=== PATIENT | male | born 1990 | race Caucasian/White ===

== ENCOUNTER 2019-06-04 21:31 | Emergency (ER) | payer OTHER ==
[~2019-06-04] VITALS: Ht 170.2 cm; Wt 74.8 kg
[~2019-06-04 21:31] MED LIST: AMOXICILLIN500 M1 PO; IBUPROFEN 800800 M1 PO; NOHOMEMEDICATIONS; PROMETHAZINE-C120 ML PO; UNISOM SLEEP AI25 MG PO
[2019-06-04] MEDS ORDERED: PAXIL10 MG PO (21:46)
[2019-06-04 21:55] LABS: URINE BILIRUBIN NEGATIVE (Negative); URINE BLOOD NEGATIVE (Negative); URINE CLARITY CLEAR; URINE COLOR YELLOW; URINE GLUCOSE-RANDOM NEGATIVE (Negative); URINE KETONES NEGATIVE (Negative); URINE LEUKOCYTES NEGATIVE (Negative); URINE NITRITE NEGATIVE (Negative); URINE PROTEIN NEGATIVE (Negative); URINE SPECIFIC GRAVITY <= 1.005 (1.005-1.030); URINE UROBILINOGEN 0.2 E.U./dl (0.2-1.0)
[2019-06-04 22:05] LABS: AMP/METHAMP Negative (Negative); BARBITURATES Negative (Negative); BENZODIAZEPINES Negative (Negative); COCAINE Negative (Negative); METHADONE Negative (Negative); OPIATES Negative (Negative); PCP Negative (Negative); THC Negative (Negative)
[2019-06-04 22:09] LABS: HEMATOCRIT 46.5 % (42.0-52.0); HEMOGLOBIN 16.2 gm/dL (14.0-18.0); MCH 33.1 pg (26.0-34.0); MCHC 34.9 g/dL (28.0-37.0); MCV 94.7 fL (80.0-100.0); MPV 8.4 fl. (7.2-11.1); RBC 4.91 mil/uL (4.50-6.00); RDW-CV 13.3 % (10.5-14.5)
[2019-06-04 22:17] LABS: CALCIUM 8.1 mg/dL (8.5-10.1); CREATININE 0.9 mg/dL (0.6-1.3); POTASSIUM 3.8 mmol/L (3.5-5.1)
[2019-06-04 22:22] LABS: ALBUMIN 3.9 g/dL (3.4-5.0); TOTAL BILIRUBIN 0.2 mg/dL (<0.1-1.0)
[2019-06-04 22:25] LABS: ALCOHOL 258 mg/dL (<10)
[2019-06-04 22:29] LABS: ACETAMINOPHEN < 2 ug/mL (10-30)
[2019-06-05 10:43] VITALS: BP 116/58
== END 2019-06-05 10:43 ==
LOC: M.ERS 21:31
PROVIDERS: Personal Emergency Response Attendant
DX: F10.129 Alcohol abuse with intoxication, unspecified (principal); Y90.8 Blood alcohol level of 240 mg/100 ml or more; F32.9 Major depressive disorder, single episode, unspecified; R45.851 Suicidal ideations; F41.9 Anxiety disorder, unspecified; F17.210 Nicotine dependence, cigarettes, uncomplicated; Z79.899 Other long term (current) drug therapy

== ENCOUNTER 2019-06-21 07:20 | Emergency (ER) | payer OTHER ==
[~2019-06-21] VITALS: Ht 170.2 cm; Wt 72.6 kg
[~2019-06-21 07:20] MED LIST changes: +PAXIL10 MG PO
[2019-06-21 08:09] LABS: URINE BILIRUBIN NEGATIVE (Negative); URINE BLOOD NEGATIVE (Negative); URINE CLARITY CLEAR; URINE COLOR YELLOW; URINE GLUCOSE-RANDOM NEGATIVE (Negative); URINE KETONES TRACE (Negative); URINE LEUKOCYTES NEGATIVE (Negative); URINE NITRITE NEGATIVE (Negative); URINE PROTEIN NEGATIVE (Negative); URINE SPECIFIC GRAVITY 1.015 (1.005-1.030); URINE UROBILINOGEN 0.2 E.U./dl (0.2-1.0)
[2019-06-21 08:16] LABS: AMP/METHAMP Negative (Negative); BARBITURATES Negative (Negative); BENZODIAZEPINES Negative (Negative); COCAINE Negative (Negative); METHADONE Negative (Negative); OPIATES Negative (Negative); PCP Negative (Negative); THC POSITIVE (Negative)
[2019-06-21 08:40] LABS: HEMATOCRIT 48.3 % (42.0-52.0); HEMOGLOBIN 17.3 gm/dL (14.0-18.0); MCH 33.8 pg (26.0-34.0); MCHC 35.7 g/dL (28.0-37.0); MCV 94.5 fL (80.0-100.0); MPV 8.2 fl. (7.2-11.1); RBC 5.11 mil/uL (4.50-6.00); RDW-CV 12.7 % (10.5-14.5); WBC 6.3 thou/uL (4.0-11.0)
[2019-06-21 08:48] LABS: CALCIUM 8.1 mg/dL (8.5-10.1); POTASSIUM 3.9 mmol/L (3.5-5.1)
[2019-06-21 08:52] LABS: ALBUMIN 4.2 g/dL (3.4-5.0); TOTAL BILIRUBIN 0.3 mg/dL (<0.1-1.0); TOTAL PROTEIN 8.3 g/dL (6.4-8.2)
[2019-06-21 09:11] LABS: ALCOHOL 211 mg/dL (<10); SALICYLATE 4.4 mg/dL (2.8-20.0)
[2019-06-21 09:16] LABS: ACETAMINOPHEN < 2 ug/mL (10-30)
[2019-06-21 16:38] VITALS: BP 118/74
== END 2019-06-21 16:35 | disposition still patient (30) ==
LOC: M.ERS 07:20
PROVIDERS: Personal Emergency Response Attendant
DX: R45.851 Suicidal ideations (principal); F32.9 Major depressive disorder, single episode, unspecified; F10.129 Alcohol abuse with intoxication, unspecified; F41.9 Anxiety disorder, unspecified; F17.210 Nicotine dependence, cigarettes, uncomplicated; Y90.7 Blood alcohol level of 200-239 mg/100 ml